=== PATIENT | female | born 1970 | race Caucasian/White ===

== ENCOUNTER 2016-12-08 19:17 | Emergency (ER) | payer OTHER ==
[~2016-12-08] VITALS: Ht 170.2 cm; Wt 114.8 kg
[~2016-12-08 19:17] MED LIST: ALBUTEROL2.5 MG/3 M IH; AMITIZA24 MICROGR PO; AMITRIPTYLINE100 MG PO; ASACOL400 MG PO; ASCORBIC ACID500 M3 PO; ATARAX,VISTARIL25 MG PO; BENTYL20 MG PO; DIAZEPAM10 MG PO; DICYCLOMINE HCL20 MG PO; DOXEPIN HCL100 MG PO; FLEXERIL10 MG PO; IMITREX50 MG PO; LORTAB 10-5001 EACH PO; LYRICA50 MG PO; MECLIZINE HCL25 MG PO; MELATONIN1 MG PO; MELATONIN10 M1 PO; METOCLOPRAMIDE10 MG PO; NASONEX17 GM BOTH NARES; OXAYDO5 MG PO; OXYCODONE HCL5 MG PO; PANTOPRAZOLE SO40 MG PO; PENTASA500 MG PO; PERCOCET 5/31 TABLET PO; POTASSIUM-9999 MG PO; PRILOSEC; PRILOSEC20 MG PO; PROTONIX40 MG PO; RANITIDINE HCL300 MG PO; REGLAN10 MG PO; SUCRALFATE1 GM PO; TOPAMAX100 MG PO; TYLENOL ARTHRI650 MG PO; TYLENOL EXTRA500 MG PO; VENTOLIN HFA18 GM IH; VIT D; VITAMIN D33000 UNIT PO; VITAMIN D5000 UNI1 PO; ZANAFLEX6 MG PO; ZOFRAN4 MG PO; ZOFRAN8 MG PO; ZOLPIDEM TARTRA10 MG PO
[2016-12-08] MEDS ORDERED: ZITHROMAX Z-PA250 MG PO (20:33)
[2016-12-08] MEDS ORDERED: FLONASE16 G1 BOTH NARES (20:33)
[2016-12-08 20:38] VITALS: BP 139/98
== END 2016-12-08 20:39 | disposition home or self-care (01) ==
LOC: EXP 19:17 → EME 19:17 → EXP 20:39
DX: J32.0 Chronic maxillary sinusitis (principal); R05 Cough; M54.2 Cervicalgia; H92.02 Otalgia, left ear; I10 Essential (primary) hypertension; G89.29 Other chronic pain; F17.200 Nicotine dependence, unspecified, uncomplicated
CPT/HCPCS: 99281; 99283

== ENCOUNTER 2017-01-03 19:05 | Emergency (ER) | payer OTHER ==
[~2017-01-03] VITALS: Ht 172.7 cm; Wt 115.8 kg
[~2017-01-03 19:05] MED LIST changes: +FLONASE16 G1 BOTH NARES; +ZITHROMAX Z-PA250 MG PO
[2017-01-03 19:42] LABS: HEMATOCRIT 41.2 % (36.0-46.0); MCHC 33.3 G/DL (30.0-36.0); MCV 84.3 FL (83-99); MEAN PLAT.VOLUME 9.9 uM^3 (9.5-12.4); PLATELET COUNT 342 K/uL (156-360); RBC DIS.WIDTH-CV 12.9 % (11.8-14.6); RBC DIS.WIDTH-SD 38.8 % (39-53); RED BLOOD COUNT 4.89 M/uL (3.80-5.20); WHITE BLOOD COUNT 9.1 K/uL (4.1-10.2)
[2017-01-03 19:51] LABS: CHLORIDE 109 mEq/L (99-109); POTASSIUM 4.1 mEq/L (3.7-5.4); SODIUM 141 mEq/L (136-147)
[2017-01-03 19:54] LABS: GLUCOSE 96 mg/dL (70-99)
[2017-01-03 19:55] LABS: ANION GAP 9 MEQ/L (2-14)
[2017-01-03 19:56] LABS: TOTAL BILIRUBIN 0.3 mg/dL (0.0-1.0)
[2017-01-03 19:57] LABS: ALKALINE PHOSPHATASE 82 IU/L (3-129)
[2017-01-03 19:58] LABS: GFR ESTIMATE (CALCULATED) 52 mL/min/
[2017-01-03 19:59] LABS: UREA NITROGEN (BUN) 16 mg/dL (9-23)
[2017-01-03 20:01] LABS: LIPASE 33 U/L (1.0-51.0)
[2017-01-03 20:07] LABS: ADD MIUA? YES; BILIRUBIN NEGATIVE; BLOOD NEGATIVE; COLOR YELLOW ((YELLOW)); GLUCOSE (STRIP) NEGATIVE; KETONES NEGATIVE; LEUKOCYTES NEGATIVE; NITRITE NEGATIVE; PROTEIN (STRIP) 30; SPECIFIC GRAVITY 1.026 (1.000-1.030); UROBILINOGEN 0.2 MG/DL (0.2-1.0)
[2017-01-03 20:07] LABS: QUANTITATIVE HCG < 4.0 MIU/ML
[2017-01-03 20:10] LABS: BACTERIA RARE /HPF; EPITHELIAL CELLS 1+ /HPF; MUCUS TRACE /LPF; RED BLOOD CELLS 0-5 /HPF (0-5); UCUL ADDED? NO; WHITE BLOOD CELLS 0-5 /HPF (0-5)
[2017-01-03] MEDS ORDERED: ZOFRAN ODT4 MG PO (22:01)
[2017-01-03] MEDS ORDERED: BENTYL20 MG PO (22:01)
[2017-01-03] MEDS ORDERED: MOTRIN800 MG PO (22:01)
[2017-01-03 22:35] VITALS: BP 154/95
== END 2017-01-03 22:36 | disposition home or self-care (01) ==
LOC: EME 19:05
DX: R10.11 Right upper quadrant pain (principal); R11.2 Nausea with vomiting, unspecified; I10 Essential (primary) hypertension; F17.200 Nicotine dependence, unspecified, uncomplicated
CPT/HCPCS: 74000; 74177; 80053; 81003; 83690; 84702; 85027; 99281; 99285; J0500; J1885; J2405; J7030

== ENCOUNTER 2017-05-19 16:16 | Emergency (ER) | payer OTHER ==
[~2017-05-19] VITALS: Ht 172.7 cm; Wt 110.0 kg
[~2017-05-19 16:16] MED LIST changes: +MOTRIN800 MG PO; +ZOFRAN ODT4 MG PO
[2017-05-19 21:39] LABS: CHLORIDE 107 mEq/L (99-109); POTASSIUM 3.9 mEq/L (3.7-5.4); SODIUM 141 mEq/L (136-147)
[2017-05-19 21:40] LABS: GLUCOSE 94 mg/dL (70-99)
[2017-05-19 21:42] LABS: ANION GAP 10 MEQ/L (2-14)
[2017-05-19 21:45] LABS: UREA NITROGEN (BUN) 13 mg/dL (9-23)
[2017-05-19 21:47] LABS: CREATINE KINASE 56 IU/L (1-294)
[2017-05-19 22:22] LABS: GFR ESTIMATE (CALCULATED) 47 mL/min/
[2017-05-19] MEDS ORDERED: MOTRIN800 MG PO (23:20)
[2017-05-19] MEDS ORDERED: NORCO 7.5/321 TABLET PO (23:20)
[2017-05-20 00:14] VITALS: BP 131/93
== END 2017-05-19 23:20 | disposition home or self-care (01) ==
LOC: EME 16:16
PROVIDERS: Physician Assistant
DX: M17.11 Unilateral primary osteoarthritis, right knee (principal); Z96.652 Presence of left artificial knee joint; F17.200 Nicotine dependence, unspecified, uncomplicated
CPT/HCPCS: 73564; 80048; 82550; 93971; 99281; 99284

== ENCOUNTER 2017-09-09 18:18 | Emergency (ER) | payer OTHER ==
[~2017-09-09] VITALS: Ht 172.7 cm; Wt 110.0 kg
[~2017-09-09 18:18] MED LIST changes: +NORCO 7.5/321 TABLET PO
[2017-09-09] MEDS ORDERED: ZOFRAN ODT4 MG PO (22:26)
[2017-09-09] MEDS ORDERED: FIORICET 50-301 EACH PO (22:26)
[2017-09-09 22:42] VITALS: BP 127/75
== END 2017-09-09 22:43 | disposition home or self-care (01) ==
LOC: EME 18:18
DX: R51 Headache (principal); I10 Essential (primary) hypertension; J45.909 Unspecified asthma, uncomplicated; K50.90 Crohn's disease, unspecified, without complications; M79.7 Fibromyalgia; Z96.652 Presence of left artificial knee joint; Z90.710 Acquired absence of both cervix and uterus; Z87.891 Personal history of nicotine dependence
CPT/HCPCS: 99281; 99285; J1200; J1885; J2270; J2765; J7030

== ENCOUNTER 2017-09-26 01:43 | Emergency (ER) | payer OTHER ==
[~2017-09-26] VITALS: Ht 172.7 cm; Wt 109.0 kg
[~2017-09-26 01:43] MED LIST changes: +FIORICET 50-301 EACH PO
[2017-09-26 02:07] LABS: HEMATOCRIT 43.1 % (36.0-46.0); MCH 27.9 PG (29.0-34.0); MCHC 32.7 G/DL (30.0-36.0); MCV 85.2 FL (83-99); MEAN PLAT.VOLUME 9.6 uM^3 (9.5-12.4); PLATELET COUNT 373 K/uL (156-360); RBC DIS.WIDTH-CV 12.2 % (11.8-14.6); RBC DIS.WIDTH-SD 37.3 % (39-53); RED BLOOD COUNT 5.06 M/uL (3.80-5.20); WHITE BLOOD COUNT 14.4 K/uL (4.1-10.2)
[2017-09-26 02:29] LABS: TROP-I INTERPRETATION NEGATIVE; TROPONIN-I < 0.01 ng/mL (0.0-0.30)
[2017-09-26 02:59] LABS: CHLORIDE 107 mEq/L (99-109); POTASSIUM 3.7 mEq/L (3.7-5.4); SODIUM 140 mEq/L (136-147)
[2017-09-26 03:01] LABS: GLUCOSE 106 mg/dL (70-99)
[2017-09-26 03:03] LABS: ANION GAP 7 MEQ/L (2-14); TOTAL BILIRUBIN 0.3 mg/dL (0.0-1.0)
[2017-09-26 03:05] LABS: ALKALINE PHOSPHATASE 75 IU/L (3-129); GFR ESTIMATE (CALCULATED) 57 mL/min/
[2017-09-26 03:06] LABS: UREA NITROGEN (BUN) 21 mg/dL (9-23)
[2017-09-26 03:07] LABS: DIRECT BILIRUBIN 0.1 mg/dL (0.0-0.3)
[2017-09-26 03:08] LABS: LIPASE 16 U/L (1.0-51.0)
[2017-09-26 04:50] LABS: TROP-I INTERPRETATION NEGATIVE; TROPONIN-I < 0.01 ng/mL (0.0-0.30)
[2017-09-26 05:15] VITALS: BP 118/73
== END 2017-09-26 05:15 | disposition home or self-care (01) ==
LOC: EME 01:43
PROVIDERS: Emergency Medicine
DX: R07.89 Other chest pain (principal); I10 Essential (primary) hypertension; J45.909 Unspecified asthma, uncomplicated; M79.7 Fibromyalgia; K50.90 Crohn's disease, unspecified, without complications; Z96.652 Presence of left artificial knee joint; Z87.891 Personal history of nicotine dependence; Z88.0 Allergy status to penicillin; Z88.2 Allergy status to sulfonamides; Z88.1 Allergy status to other antibiotic agents
CPT/HCPCS: 71020; 80048; 80048 91; 80076; 83690; 84484; 85027; 93005; 99281; 99284; J2405

== ENCOUNTER 2018-01-09 17:25 | Emergency (ER) | payer OTHER ==
[~2018-01-09] VITALS: Ht 172.7 cm; Wt 109.3 kg
[2018-01-09 18:30] LABS: HEMATOCRIT 42.5 % (36.0-46.0); HEMOGLOBIN 14.2 G/DL (11.9-15.5); MCH 28.1 PG (29.0-34.0); MCHC 33.4 G/DL (30.0-36.0); PLATELET COUNT 339 K/uL (156-360); RBC DIS.WIDTH-CV 12.1 % (11.8-14.6); RBC DIS.WIDTH-SD 36.6 % (39-53); RED BLOOD COUNT 5.06 M/uL (3.80-5.20); WHITE BLOOD COUNT 9.9 K/uL (4.1-10.2)
[2018-01-09 18:46] LABS: ALBUMIN 4.3 g/dL (3.2-4.8); CHLORIDE 104 mEq/L (99-109); POTASSIUM 3.7 mEq/L (3.7-5.4); SODIUM 139 mEq/L (136-147)
[2018-01-09 18:48] LABS: GLUCOSE 95 mg/dL (70-99); TOTAL PROTEIN 7.4 g/dL (6.4-8.3)
[2018-01-09 18:50] LABS: TOTAL BILIRUBIN 0.3 mg/dL (0.0-1.0)
[2018-01-09 18:52] LABS: ALKALINE PHOSPHATASE 94 IU/L (3-129); CREATININE 1.4 mg/dL (0.6-1.3); GFR ESTIMATE (CALCULATED) 43 mL/min/
[2018-01-09 18:53] LABS: UREA NITROGEN (BUN) 13 mg/dL (9-23)
[2018-01-09 18:54] LABS: AST (GOT) 19 IU/L (2-34)
[2018-01-09 18:55] LABS: ALT (GPT) 22 IU/L (3-49)
[2018-01-09 19:02] LABS: QUANTITATIVE HCG < 4.0 MIU/ML
[2018-01-09] MEDS ORDERED: FLAGYL500 MG PO (23:25)
[2018-01-09] MEDS ORDERED: PERCOCET 5/31 TABLET PO (23:26)
[2018-01-09 23:48] VITALS: BP 117/70
== END 2018-01-09 23:49 | disposition home or self-care (01) ==
LOC: EME 17:25
DX: K52.9 Noninfective gastroenteritis and colitis, unspecified (principal); E05.90 Thyrotoxicosis, unspecified without thyrotoxic crisis or storm; M79.7 Fibromyalgia; J45.909 Unspecified asthma, uncomplicated; I10 Essential (primary) hypertension; K50.90 Crohn's disease, unspecified, without complications; Z96.652 Presence of left artificial knee joint; Z88.2 Allergy status to sulfonamides; Z88.1 Allergy status to other antibiotic agents; Z88.0 Allergy status to penicillin; Z87.891 Personal history of nicotine dependence
CPT/HCPCS: 74177; 80053; 81003; 84702; 85027; 99281; 99285; J1885; J2270; J2405; J2765; J3010; J7030

== ENCOUNTER 2018-01-28 14:16 | Emergency (ER) | payer OTHER ==
[~2018-01-28] VITALS: Ht 172.7 cm; Wt 108.0 kg
[~2018-01-28 14:16] MED LIST changes: +FLAGYL500 MG PO
[2018-01-28 14:59] LABS: HEMATOCRIT 42.3 % (36.0-46.0); HEMOGLOBIN 14.3 G/DL (11.9-15.5); MCH 28.3 PG (29.0-34.0); MCHC 33.8 G/DL (30.0-36.0); MCV 83.8 FL (83-99); PLATELET COUNT 317 K/uL (156-360); RBC DIS.WIDTH-CV 12.5 % (11.8-14.6); RBC DIS.WIDTH-SD 37.7 % (39-53); RED BLOOD COUNT 5.05 M/uL (3.80-5.20)
[2018-01-28 15:09] LABS: ALBUMIN 4.2 g/dL (3.2-4.8); CHLORIDE 109 mEq/L (99-109); POTASSIUM 3.9 mEq/L (3.7-5.4); SODIUM 139 mEq/L (136-147)
[2018-01-28 15:11] LABS: GLUCOSE 104 mg/dL (70-99); TOTAL PROTEIN 7.3 g/dL (6.4-8.3)
[2018-01-28 15:13] LABS: TOTAL BILIRUBIN 0.5 mg/dL (0.0-1.0)
[2018-01-28 15:15] LABS: ALKALINE PHOSPHATASE 89 IU/L (3-129); GFR ESTIMATE (CALCULATED) > 59 mL/min/
[2018-01-28 15:16] LABS: UREA NITROGEN (BUN) 12 mg/dL (9-23)
[2018-01-28 15:17] LABS: AST (GOT) 14 IU/L (2-34)
[2018-01-28 15:18] LABS: ALT (GPT) 14 IU/L (3-49)
[2018-01-28 15:23] LABS: QUANTITATIVE HCG < 4.0 MIU/ML
[2018-01-28 19:44] LABS: APPEARANCE CLOUDY ((CLEAR)); BILIRUBIN NEGATIVE; BLOOD NEGATIVE; COLOR YELLOW ((YELLOW)); GLUCOSE (STRIP) NEGATIVE; KETONES NEGATIVE; LEUKOCYTES NEGATIVE; NITRITE NEGATIVE; PROTEIN (STRIP) 30; SPECIFIC GRAVITY 1.028 (1.000-1.030); UROBILINOGEN 0.2 MG/DL (0.2-1.0)
[2018-01-28 20:13] LABS: BACTERIA RARE /HPF; MUCUS RARE /LPF; RED BLOOD CELLS RARE /HPF (0-5); UCUL ADDED? NO; WHITE BLOOD CELLS RARE /HPF (0-5)
[2018-01-28 20:14] LABS: EPITHELIAL CELLS 3+ /HPF
[2018-01-28 20:15] LABS: AMORPHOUS URATES CRYSTALS 3+
[2018-01-28] MEDS ORDERED: PREDNISONE20 MG PO (22:23)
[2018-01-28] MEDS ORDERED: PENTASA500 MG PO (22:23)
[2018-01-28] MEDS ORDERED: BENTYL10 MG PO (22:24)
[2018-01-28] MEDS ORDERED: PERCOCET 5/31 TABLET PO (22:24)
[2018-01-28 22:40] VITALS: BP 142/86
== END 2018-01-28 22:40 | disposition home or self-care (01) ==
LOC: EME 14:16
DX: K50.911 Crohn's disease, unspecified, with rectal bleeding (principal); M79.7 Fibromyalgia; J45.909 Unspecified asthma, uncomplicated; I10 Essential (primary) hypertension; Z87.891 Personal history of nicotine dependence; Z90.49 Acquired absence of other specified parts of digestive tract; Z90.710 Acquired absence of both cervix and uterus; Z96.652 Presence of left artificial knee joint; Z88.2 Allergy status to sulfonamides; Z88.1 Allergy status to other antibiotic agents; Z88.0 Allergy status to penicillin
CPT/HCPCS: 74177; 80053; 81003; 84702; 85027; 99281; 99284; J2270; J2405; J2930; J7030

== ENCOUNTER → 2018-02-14 | Outpatient (CLI) | payer OTHER ==
[~2018-02-14] VITALS: Ht 170.2 cm; Wt 108.9 kg
[~2018-02-14] MED LIST changes: +AMITRIPTYLINE H25 MG PO; +BENTYL10 MG PO; +PREDNISONE20 MG PO
== END | disposition home or self-care (01) ==
LOC: AMB 12:22
DX: K22.10 Ulcer of esophagus without bleeding (principal); K29.70 Gastritis, unspecified, without bleeding; K57.30 Diverticulosis of large intestine without perforation or abscess without bleeding; K64.8 Other hemorrhoids; R10.13 Epigastric pain; K21.9 Gastro-esophageal reflux disease without esophagitis; R93.5 Abnormal findings on diagnostic imaging of other abdominal regions, including retroperitoneum; J45.909 Unspecified asthma, uncomplicated; I12.9 Hypertensive chronic kidney disease with stage 1 through stage 4 chronic kidney disease, or unspecified chronic kidney disease; N18.3 Chronic kidney disease, stage 3 (moderate); E66.3 Overweight; F17.200 Nicotine dependence, unspecified, uncomplicated; Z82.49 Family history of ischemic heart disease and other diseases of the circulatory system; Z83.3 Family history of diabetes mellitus; Z88.0 Allergy status to penicillin; Z88.1 Allergy status to other antibiotic agents; Z88.8 Allergy status to other drugs, medicaments and biological substances
CPT/HCPCS: 88305; 88342 TC; J2250

== ENCOUNTER 2018-03-11 13:17 | Emergency (ER) | payer OTHER ==
[~2018-03-11] VITALS: Ht 172.7 cm; Wt 107.7 kg
[2018-03-11 14:12] LABS: HEMATOCRIT 40.9 % (36.0-46.0); HEMOGLOBIN 13.9 G/DL (11.9-15.5); MCH 28.7 PG (29.0-34.0); MCV 84.5 FL (83-99); PLATELET COUNT 288 K/uL (156-360); RED BLOOD COUNT 4.84 M/uL (3.80-5.20); WHITE BLOOD COUNT 9.4 K/uL (4.1-10.2)
[2018-03-11 14:23] LABS: CHLORIDE 110 mEq/L (99-109); POTASSIUM 3.8 mEq/L (3.7-5.4); SODIUM 142 mEq/L (136-147)
[2018-03-11 14:25] LABS: GLUCOSE 92 mg/dL (70-99)
[2018-03-11 14:29] LABS: GFR ESTIMATE (CALCULATED) > 59 mL/min/
[2018-03-11 14:30] LABS: UREA NITROGEN (BUN) 17 mg/dL (9-23)
[2018-03-11] MEDS ORDERED: COMPAZINE10 MG PO (16:34)
[2018-03-11 17:02] VITALS: BP 108/71
== END 2018-03-11 17:03 | disposition home or self-care (01) ==
LOC: EME 13:17
DX: H81.399 Other peripheral vertigo, unspecified ear (principal); R11.0 Nausea; G43.909 Migraine, unspecified, not intractable, without status migrainosus; F32.9 Major depressive disorder, single episode, unspecified; F41.9 Anxiety disorder, unspecified; J45.909 Unspecified asthma, uncomplicated; M79.7 Fibromyalgia; K50.90 Crohn's disease, unspecified, without complications; Z96.652 Presence of left artificial knee joint; Z88.2 Allergy status to sulfonamides; Z88.1 Allergy status to other antibiotic agents; Z88.0 Allergy status to penicillin; Z87.891 Personal history of nicotine dependence
CPT/HCPCS: 71046; 80048; 85027; 93005; 99281; 99284; J0780